=== PATIENT | male | born 1965 | race Caucasian/White ===

== ENCOUNTER 2016-07-27 17:44 | Observation (INO) | payer BC ==
[2016-07-27] MEDS ORDERED: METOPROLOL SUCC25 MG PO (18:30)
[2016-07-27] MEDS ORDERED: LISINOPRIL2.5 MG PO (18:30)
[2016-07-27] MEDS ORDERED: ANDROGEL75 GM TOP (18:31)
[2016-07-27 19:02] LABS: BUN/CREATININE RATIO 21 (0-10)
[2016-07-27 19:10] LABS: HEMOGLOBIN 14.5 gm/dl (14.0-17.5); RED BLOOD COUNT 4.65 M/UL (4.20-5.50); WHITE BLOOD COUNT 8.9 K/UL (4.5-11.0)
[2016-07-28 06:32] LABS: HEMOGLOBIN 13.6 gm/dl (14.0-17.5); RED BLOOD COUNT 4.42 M/UL (4.20-5.50); WHITE BLOOD COUNT 6.7 K/UL (4.5-11.0)
[2016-07-28 06:48] LABS: BUN/CREATININE RATIO 17 (0-10)
[2016-07-28] MEDS ORDERED: PROTONIX40 MG PO (13:56)
[2016-09-06] MEDS ORDERED: LISINOPRIL2.5 MG PO (08:40)
[2016-09-06] MEDS ORDERED: PROTONIX20 MG PO (08:41)
[2016-09-06] MEDS ORDERED: METOPROLOL SUCC25 MG PO (08:41)
[2016-09-06] MEDS ORDERED: LAMISIL PO (08:43)
== END 2016-07-28 16:04 | disposition home or self-care (01) ==
LOC: MED SURG 4 17:44
PROVIDERS: ADMIT Emergency Medicine
DX: R10.13 Epigastric pain (principal); R10.32 Left lower quadrant pain; R10.11 Right upper quadrant pain; I42.9 Cardiomyopathy, unspecified; G43.909 Migraine, unspecified, not intractable, without status migrainosus; G47.30 Sleep apnea, unspecified; M54.5 Low back pain; G89.29 Other chronic pain; L40.9 Psoriasis, unspecified; I10 Essential (primary) hypertension; Z87.19 Personal history of other diseases of the digestive system; Z90.49 Acquired absence of other specified parts of digestive tract; Z96.659 Presence of unspecified artificial knee joint; Z82.3 Family history of stroke; Z82.49 Family history of ischemic heart disease and other diseases of the circulatory system; Z83.3 Family history of diabetes mellitus; Z23 Encounter for immunization
CPT/HCPCS: 36415; 76705; 80048; 80053; 81001; 82150; 83690; 85025; 85027; 94760; 96374; 96375; C9113; G0008; G0378; G0379; J1335; J1650; J7050; Q2039; Q9962

== ENCOUNTER → 2016-09-06 | Day surgery (SDC) | payer BC ==
[~2016-09-06] VITALS: Ht 172.7 cm; Wt 127.9 kg
[~2016-09-06] MED LIST: ANDROGEL75 GM TOP; LAMISIL PO; LISINOPRIL2.5 MG PO; METOPROLOL SUCC25 MG PO; PROTONIX20 MG PO; PROTONIX40 MG PO
== END | disposition home or self-care (01) ==
LOC: OR 07:49
PROVIDERS: Internal Medicine Gastroenterology
PROC: 0DB68ZX Excision of Stomach, Via Natural or Artificial Opening Endoscopic, Diagnostic (ICD-10-PCS; principal; 2016-09-06 11:30)
DX: K29.50 Unspecified chronic gastritis without bleeding (principal); K44.9 Diaphragmatic hernia without obstruction or gangrene; K22.2 Esophageal obstruction; K21.0 Gastro-esophageal reflux disease with esophagitis; G47.30 Sleep apnea, unspecified; Z83.3 Family history of diabetes mellitus; Z82.49 Family history of ischemic heart disease and other diseases of the circulatory system; Z98.890 Other specified postprocedural states; Z99.89 Dependence on other enabling machines and devices
CPT/HCPCS: J2250; J3010; J7030

== ENCOUNTER → 2016-09-22 | Outpatient (CLI) | payer BC | LOC: HEART 5 13:59 | DX: I10 Essential (primary) hypertension (principal); R06.02 Shortness of breath | CPT/HCPCS: 93306 ==

== ENCOUNTER 2020-07-13 17:30 | Emergency (ER) | payer BC ==
[~2020-07-13 17:30] MED LIST changes: +AMOXICILLIN500 M1 PO; +ASPIRIN CHEWABL81 MG PO; +MOBIC15 MG PO; +NORCO 5-325 TA1 EACH PO; +RANEXA500 MG PO
[2020-07-13] MEDS ORDERED: DECADRON6 MG PO (20:03)
[2020-07-13] MEDS ORDERED: ZITHROMAX250 MG PO (20:03)
== END 2020-07-13 22:47 | disposition home or self-care (01) ==
LOC: ER1 17:30
DX: U07.1 COVID-19 (principal); I10 Essential (primary) hypertension; K21.9 Gastro-esophageal reflux disease without esophagitis; Z79.899 Other long term (current) drug therapy
CPT/HCPCS: 71045; 87081; 87880; 99285; M0239

== ENCOUNTER → 2020-07-24 | Outpatient (CLI) | payer BC ==
[~2020-07-24] MED LIST changes: +DECADRON6 MG PO; +ZITHROMAX250 MG PO
== END ==
LOC: EXRD 11:05
DX: N50.811 Right testicular pain (principal); N43.3 Hydrocele, unspecified
CPT/HCPCS: 76870

== ENCOUNTER → 2020-12-08 | Outpatient (CLI) | payer BC | LOC: ECHO 11-06 12:00 → NM 11-06 13:00 → ECHO 09:00 | DX: I20.9 Angina pectoris, unspecified (principal); I08.1 Rheumatic disorders of both mitral and tricuspid valves | CPT/HCPCS: ECHO; 78452; 93017; 93306; A9502; J2785 ==

== ENCOUNTER → 2021-02-26 | Outpatient (CLI) | payer BC | LOC: LAB 17:29 | DX: R06.02 Shortness of breath (principal); R07.9 Chest pain, unspecified; R07.82 Intercostal pain; R05.9 Cough, unspecified; Z86.79 Personal history of other diseases of the circulatory system; R00.1 Bradycardia, unspecified | CPT/HCPCS: 71046; 71100; 93005 ==

== ENCOUNTER → 2021-03-10 | Outpatient (CLI) | payer BC ==
[~2021-03-10] MED LIST changes: +FLOMAX0.4 MG PO; +ISOSORBIDE MONO30 MG PO; +LIPITOR TAB 1010 MG PO; +LIPITOR10 MG PO; +NITROGLYCERIN0.4 MG SL; +OTEZLA30 MG PO; +PROTONIX 40 MG40 M1 PO; +RANEXA1000 MG PO
[2021-03-10 16:06] LABS: HEMOGLOBIN 14.9 gm/dl (14.0-17.5); RED BLOOD COUNT 4.74 M/UL (4.20-5.50); WHITE BLOOD COUNT 7.4 K/UL (4.5-11.0)
[2021-03-10 16:25] LABS: BUN/CREATININE RATIO 12 (0-10)
== END ==
LOC: LAB 15:27
PROVIDERS: Internal Medicine Cardiovascular Disease
DX: I25.119 Atherosclerotic heart disease of native coronary artery with unspecified angina pectoris (principal); R94.39 Abnormal result of other cardiovascular function study
CPT/HCPCS: 36415; 71046; 80048; 85025

== ENCOUNTER → 2021-03-12 | Outpatient (CLI) | payer BC | LOC: CATH 08:37 | DX: I25.118 Atherosclerotic heart disease of native coronary artery with other forms of angina pectoris (principal); I11.0 Hypertensive heart disease with heart failure; I50.9 Heart failure, unspecified; R00.1 Bradycardia, unspecified; K21.9 Gastro-esophageal reflux disease without esophagitis; G47.33 Obstructive sleep apnea (adult) (pediatric); M19.90 Unspecified osteoarthritis, unspecified site; L40.50 Arthropathic psoriasis, unspecified; E78.00 Pure hypercholesterolemia, unspecified; E66.9 Obesity, unspecified; Z68.41 Body mass index [BMI] 40.0-44.9, adult; Z99.89 Dependence on other enabling machines and devices; Z79.899 Other long term (current) drug therapy | CPT/HCPCS: 99152; C1769; C1894; J1644; J2250; J3010; J7030; Q9967 ==